=== PATIENT | male | born 1990 | race Caucasian/White ===

== ENCOUNTER 2024-11-27 22:02 | Outpatient (CLI) | payer OTHER, SELFPAY | END 2024-11-27 22:03 | disposition home or self-care (01) | LOC: AMB 11-29 14:22 | PROVIDERS: Visit Provider Family Medicine | DX: S09.90XA Unspecified injury of head, initial encounter (principal); V49.49XA Driver injured in collision with other motor vehicles in traffic accident, initial encounter; Y92.410 Unspecified street and highway as the place of occurrence of the external cause | CPT/HCPCS: A0425; A0433 ==